=== PATIENT | male | born 1980 | race Caucasian/White ===

== ENCOUNTER 2016-04-27 15:12 | Emergency (ER) | payer MEDICARE, MEDICAID ==
[~2016-04-27 15:12] MED LIST: ACIDOPHILUS1 CAP PO; ALEVE220 M1 PO; ALEVE220 M3 PO; ALEVE220 M4 PO; ALPRAZOLAM XR0.5 M1 PO; AMBIEN10 MG PO; AMITRIPTYLINE H25 M1 PO; ANTI-DEPRESSANT; AUGMENTIN 875-11 TAB PO; AUGMENTIN500 MG PO; BACITRACIN30 GM TP; BACLOFEN10 MG PO; BACTRIM DS TABL1 TAB PO; BACTRIM DS1 TA1 PO; BACTRIM DS1 TAB PO; BENADRYL50 MG PO; CIPRO250 MG PO; CIPRO500 MG PO; CLEOCIN HCL300 M1 PO; COLACE100 M1 PO; COLACE100 MG PO; COMPAZINE10 M PO; CULTURELLE1 CA1 PO; CYCLOBENZAPRINE10 M1 PO; CYCLOBENZAPRINE5 M1 PO; DEXAMETHASONE2 M1 PO; DEXAMETHASONE4 M1 PO; DILAUDID PO; DILAUDID2 MG PO; DILAUDID4 MG PO; DITROPAN5 MG PO; DULCOLAX10 MG PR; DURAGESIC1 EAC2 TOP; DURAGESIC1 EAC2 TP; DURAGESIC1 EAC3 TOP; DURAGESIC1 EAC4 TOP; DURAGESIC1 EAC5 TOP; DURAGESIC1 PATCH .; DURAGESIC1 PATCH . TOP; DURAGESIC1 PATCH TOP; EQL CRANBERRY1 EACH PO; FENTANYL1 PATC TOP; FENTANYL1 PATCH . TOP; FLEXERIL10 MG PO; GABAPENTIN300 MG PO; GABAPENTIN400 M3 PO; HEPARIN FL; HORIZANT300 MG PO; HYDROMORPHONE HC2 MG; INVANZ1 G/VIA1 IV; INVANZ1000 MG/VI IV; LAMICTAL25 M2 PO; LEVAQUIN500 MG; LEVAQUIN500 MG PO; LEVAQUIN750 MG PO; LEVOFLOXACIN750 MG PO; LIDODERM30 EA TP; MACROBID 100 M100 M1 PO; MACROBID 100 M100 MG; MACROBID 100 M100 MG PO; MACROBID100 MG/CA2 PO; MACROBID100 MG/CAP PO; MACRODANTIN100 MG PO; MAGNESIUM OXID400 M1 PO; MAXALT10 M1 PO; MAXALT10 MG PO; METHADONE5 MG; MILK OF MA400 MG/5 M PO; MIRALAX17 G2 PO; MIRALAX17 GM PO; MISOPROSTOL100 MCG PO; MOTRIN600 MG PO; NAPROSYN250 MG PO; NEURONTIN100 MG PO; NITROFURANTOIN100 MG PO; NORCO 5/325 TAB1 TAB PO; NORCO 5/3251 TAB PO; NORTRIPTYLINE H50 M1 PO; OMEPRAZOLE40 M2 PO; ONDANSETRON HCL8 M1 PO; ONDANSETRON ODT8 M1 PO; ONDANSETRON ODT8 MG PO; OXYCODONE/APAP PO; PAMELOR25 M1 PO; PAMELOR25 MG PO; PERCOCET 5/3251 TAB; PERCOCET 5/3251 TAB PO; RELISTOR SC; REMOVE FENTANYL; SENOKOT-S TABL1 EACH PO; SENOKOT-S TABLE1 TAB PO; SEPTRA 80/400 T1 TAB PO; SEPTRA DS TABLE1 TAB; SEPTRA DS TABLE1 TAB PO; SILVADENE20 GM TP; SKELAXIN800 M1 PO; SODIUM CHLORIDE10 M1 FL; THERABOND TP; TYLENOL; TYLENOL TA325 MG/TA2 PO; TYLENOL325 M1 PO; TYLENOL325 M2 PO; TYLENOL325 MG PO; TYLENOL500 MG; TYLENOL650 MG PO; UNISOM25 MG PO; VALIUM10 MG PO; VALIUM5 MG PO; VANCO 1.51.5 GM/500 IV; VENLAFAXINE HCL75 M2 PO; VIBRAMYCIN100 MG PO; VIIBRYD10 M1 PO; XANAX0.25 M1 PO; ZANAFLEX4 M PO; ZANAFLEX4 M1 PO; ZOFRAN ODT4 MG/UDTAB PO; ZOFRAN ODT8 MG/TAB PO; ZOFRAN4 MG PO; ZOLOFT100 M1 PO; ZOLOFT50 MG PO; [UNRECOGNIZED DRUG - OTHER]; [UNRECOGNIZED DRUG - OTHER] FL; [UNRECOGNIZED DRUG - OTHER] PO; [UNRECOGNIZED DRUG - OTHER] TP; [UNRECOGNIZED DRUG - SUPPLY]
[2016-04-27] MEDS ORDERED: BYSTOLIC5 M1 PO (16:08)
[2016-04-27] MEDS ORDERED: OXYBUTYNIN CHLOR PO (16:09)
[2016-04-27 17:19] LABS: BASO % 0.8 % (0-2); BASO ABSOLUTE COUNT 0.1 tho/cmm (0.0-0.2); EOS % 0.8 % (0-7); EOSINOPHIL ABSOLUTE COUNT 0.1 tho/cmm (0.0-0.7); HCT-HEMATOCRIT 45.7 % (36.0-53.5); HGB-HEMOGLOBIN 14.6 gm/dl (13.5-17.0); IMMATURE GRANULOCYTES ABSOLUTE 0.12 tho/cmm (0-0.03); IMMATURE GRANULOCYTES PERCENT 1.1 % (0-0.3); LYMPH % 24.7 % (20-45); LYMPH ABSOLUTE COUNT 2.6 tho/cmm (0.8-4.5); MCH (MEAN CORPUSCULAR HGB) 30.5 pg (28.0-32.0); MCHC MEAN CORPUSCULAR HGB CONC 31.9 % (32.0-36.0); MCV (MEAN CELL VOLUME) 95.4 fl (82.0-96.0); MEAN PLATELET VOLUME 11.3 cmc (9.4-12.4); MONO % 6.9 % (0-12); MONOCYTE ABSOLUTE COUNT 0.7 tho/cmm (0.0-1.2); NEUTROPHILS % 65.7 % (40-80); PLATELET COUNT 235 tho/cmm (150-450); RED BLOOD COUNT 4.79 mil/cmm (4.40-5.70); RED CELL DISTRIBUTION WIDTH 13.9 % (12.4-16.4); WHITE BLOOD COUNT 10.6 tho/cmm (4.0-10.0)
[2016-04-27 17:24] LABS: ANION GAP 13 mmol/L (0-20); BLOOD UREA NITROGEN 19 mg/dl (6-24); CALCIUM 9.3 mg/dl (8.5-10.5); CARBON DIOXIDE-VENOUS 20 mmol/L (22-32); CHLORIDE 114 mmol/l (96-110); CREATININE 1.45 mg/dl (0.60-1.30); GLUCOSE 114 mg/dL (70-110); POTASSIUM 3.7 mmol/L (3.7-5.1); SODIUM 143 mmol/L (135-145); eGFR VALUE FOR BLACK 72 mL/Min
[2016-04-27 17:43] LABS: URINE BILIRUBIN NEGATIVE (NEG); URINE BLOOD MODERATE (NEG); URINE GLUCOSE (UA) NEGATIVE (NEG); URINE KETONE NEGATIVE (NEG); URINE LEUKOCYTE ESTERASE POSITIVE (NEG); URINE NITRITE POSITIVE (NEG); URINE PROTEIN MODERATE (NEG)
[2016-04-27 17:52] LABS: URINE APPEARANCE SL CLOUDY; URINE COLOR YELLOW
[2016-04-27] MEDS ORDERED: ZOFRAN ODT4 MG PO (17:53)
[2016-04-27] MEDS ORDERED: CIPRO500 M2 PO (18:10)
[2016-04-27] MEDS ORDERED: PROMETHAZINE HC25 M3 PO (18:10)
[2016-04-27 18:17] LABS: URINE WBC 20-30 /[HPF] (0-5)
[2016-04-27 18:18] LABS: URINE EPITHELIAL CELLS 0-5 /[HPF] (0-10)
[2016-10-16] MEDS ORDERED: PRILOSEC OTC20 M1 PO (00:35)
[2016-10-19] MEDS ORDERED: LEVAQUIN750 M1 PO (10:55)
== END 2016-04-27 18:34 ==
LOC: EDMED 15:12
PROVIDERS: Emergency Medicine
DX: N13.30 Unspecified hydronephrosis (principal); N39.0 Urinary tract infection, site not specified; R19.7 Diarrhea, unspecified; Z87.442 Personal history of urinary calculi
CPT/HCPCS: J1170; J2405; J7030; P9612